=== PATIENT | male | born 1980 | race Caucasian/White ===

== ENCOUNTER 2022-10-25 05:00 | Day surgery (SDC) | payer OTHER ==
[~2022-10-25] VITALS: Ht 182.9 cm; Wt 90.7 kg
[2022-10-25] MEDS ORDERED: fentaNYL CITRATE/PF 100 MCG/2 ML AMP ONE (06:46)
[2022-10-25] MEDS ORDERED: BUPIVACAINE /EPINEPHRINE/PF 0.5% 30 ML VIAL INJ ONE (06:46)
[2022-10-25] MEDS ORDERED: LIDOCAINE/EPI 1% 1:100000 20 ML VIAL ONE (06:46)
[2022-10-25] MEDS ORDERED: PROPOFOL 200MG/ 20ML VIAL (DIPRIVAN) IV ONE (06:46)
[2022-10-25] MEDS ORDERED: MIDAZOLAM HCL 2 MG/2 ML VIAL (VERSED) ONE (06:46)
[2022-10-25] MEDS ORDERED: NS IRRIG SOLN 1000 ML IR ONE (06:46)
[2022-10-25] MEDS ORDERED: SEVOFLURANE 15 MIN GAS INH ONE (06:46)
[2022-10-25] MEDS ORDERED: DEXAMETHASONE SOD PHOSPHATE 4 MG/ML VIAL ONE (06:46)
[2022-10-25] MEDS ORDERED: KETOROLAC TROMETHAMINE 30 MG VIAL ONE (06:46)
[2022-10-25] MEDS ORDERED: ONDANSETRON HCL 4 MG/2 ML VIAL ONE (06:46)
[2022-10-25] MEDS ORDERED: LR 1,000 ML IV.SOLN IV ONE (06:46)
[2022-10-25] MEDS ORDERED: ceFAZolin SODIUM 2 GM in D5W 100 ML IV ONE (07:00)
[2022-10-25] MEDS ORDERED: MEPERIDINE HCL/PF 25 MG/ML DISP.SYRIN IVP PRN (07:30)
[2022-10-25] MEDS ORDERED: HYDROmorphone 1 MG/ML INJ. CARTRIDGE IVP PRN ×2 (07:30)
[2022-10-25] MEDS ORDERED: LR 1,000 ML IV SCH (07:30)
[2022-10-25] MEDS ORDERED: LABETALOL 100 MG/ 20ML VIAL IVP PRN (07:30)
[2022-10-25] MEDS ORDERED: METOCLOPRAMIDE HCL 10 MG/2 ML VIAL IVP PRN (07:30)
[2022-10-25] MEDS ORDERED: MIDAZOLAM HCL 2 MG/2 ML VIAL (VERSED) IVP PRN (07:30)
[2022-10-25] MEDS ORDERED: ACETAMINOPHEN I.V. 1000 MG 100 ML IV ONE (07:33)
[2022-10-25] MEDS ORDERED: HYDROcodone/ACETAMIN 10-325 MG TAB PO PRN (09:00)
[2022-10-25] MEDS ORDERED: ONDANSETRON 4 MG ODT TAB PO PRN (09:00)
[2022-10-25 13:25] VITALS: BP_SYST 131
== END 2022-10-25 10:50 | disposition home or self-care (01) ==
LOC: SDS 05:00 → SMU 05:00 → EDBD 10:30 → SDS 10:50
PROVIDERS: ATTEND Orthopaedic Surgery
DX: T84.84XA Pain due to internal orthopedic prosthetic devices, implants and grafts, initial encounter (principal); T81.30XA Disruption of wound, unspecified, initial encounter; S82.842D Displaced bimalleolar fracture of left lower leg, subsequent encounter for closed fracture with routine healing; S82.202D Unspecified fracture of shaft of left tibia, subsequent encounter for closed fracture with routine healing; S82.872D Displaced pilon fracture of left tibia, subsequent encounter for closed fracture with routine healing; F17.210 Nicotine dependence, cigarettes, uncomplicated; Y82.8 Other medical devices associated with adverse incidents; Z20.822 Contact with and (suspected) exposure to COVID-19; X58.XXXD Exposure to other specified factors, subsequent encounter
CPT/HCPCS: 20680 ×2; 36415; 76000; 88300; 87426; J3490; J0690; J1100; J1885; J3465; J2405; J2704; J3010; J7060; J7120; J0131